=== PATIENT | male | born 1980 | race American Indian/Alaskan Native ===

== ENCOUNTER 2020-11-21 15:06 | Emergency (ER) | payer OTHER ==
[2020-11-21 15:20] VITALS: BP 139/73
--- NOTE | 2020-11-21 16:13 | Emergency Department Report ---
Chief Complaint: Pain General Stated Complaint: BODY PAIN Time Seen by Provider: 11/21/20 16:00 - HPI History of Present Illness: 40-year-old -[place] male patient presents with complaints of mid to low back pain x1 year. 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 He reports he takes Advil as needed which sometimes helps with the pain. He denies any difficulty with ambulation, loss of bladder/bowel control, saddle paresthesias, history of cancer, or current back pain. Patient states he does do a great deal of heavy lifting and bending of the spine at work. He also is requesting a physical examination today. No tenderness of the spine noted on exam. Patient has full range of motion and denies any red flag symptoms. Given the chronicity of patient's symptoms and also patient's request to have a physical exam, recommend patient follow-up with a family medicine provider for further evaluation and treatment. Also recommend ibuprofen OTC as needed for his pain. His vitals are normal, he is well-appea ring, he is stable for discharge home. Strict return precautions were discussed in great detail with patient who verbalizes understanding. - Exam Vital Signs: Vital Signs 11/21/20 15:19 Temperature 99 F Pulse Rate 60 Respiratory 16 Rate Blood Pressure 139/73 [Right] O2 Sat by Pulse 100 Oximetry MSE screening note: Focused history and physical exam performed. Due to findings the following was ordered: ED Disposition for MSE Clinical Impression: Chronic back pain Qualifiers: Back pain location: back pain in other location Qualified Code(s): M54.9 - Dorsalgia, unspecified; G89.29 - Other chronic pain Disposition: Z-07 MED SCREENING EXAM-LEFT Is pt being admited?: No Condition: Stable Instructions: Chronic Back Pain, [id number] Additional Instructions: Please purchase [id number] ibuprofen and take 800 mg up to 3 times a day as needed for your back pain. Please take this medication with food Referrals: [facility] [Provider Group] - 3-5 Days ED Physical Exam - General Limitations: No Limitations General appearance: alert, in no apparent distress - Head Head exam: Present: atraumatic, normocephalic - Eye Eye exam: Present: normal appearance. Absent: scleral icterus - Respiratory Respiratory exam: Absent: respiratory distress - Cardiovascular Cardiovascular Exam: Present: regular rate - Extremities Exam Extremities exam: Present: full ROM - Back Exam Back exam: Present: full ROM. Absent: paraspinal tenderness, vertebral tenderness (No obvious deformities noted) - Expanded Back Exam Expanded Back exam: Absent: saddle anesthesia - Neurological Exam Neurological exam: Present: alert, oriented X3, normal gait - Psychiatric Psychiatric exam: Present: normal affect, normal mood - Skin Skin exam: Present: warm, dry, intact, normal color. Absent: rash ED Review of Systems ROS: Stated complaint: BODY PAIN Other details as noted in HPI Constitutional: denies: chills, diaphoresis, fever, malaise, weakness Respiratory: denies: cough, shortness of breath Cardiovascular: denies: chest pain Gastrointestinal: denies: abdominal pain, nausea, vomiting, diarrhea, constipation, hematemesis, melena, hematochezia Genitourinary: denies: urgency, dysuria, frequency, hematuria, discharge Musculoskeletal: back pain. denies: arthralgia Skin: denies: change in color Neurological: denies: weakness, numbness, paresthesias, abnormal gait Hematological/Lymphatic: denies: easy bruising, swollen glands
== END 2020-11-21 16:29 | disposition left against medical advice (07) ==
LOC: ED 15:06
DX: M54.5 Low back pain (principal); G89.29 Other chronic pain; Z53.21 Procedure and treatment not carried out due to patient leaving prior to being seen by health care provider